=== PATIENT | female | born 1945 | race Caucasian/White ===

== ENCOUNTER → 2018-06-21 12:53 | Outpatient (CLI) | payer OTHER, SELFPAY | PROVIDERS: PCP Student in an Organized Health Care Education/Training Program; Visit Provider Student in an Organized Health Care Education/Training Program | DX: Z78.0 Asymptomatic menopausal state (principal); R29.890 Loss of height; Z90.722 Acquired absence of ovaries, bilateral; F17.200 Nicotine dependence, unspecified, uncomplicated | CPT/HCPCS: 77080 ==

== ENCOUNTER → 2020-10-31 08:05 | Outpatient (CLI) | payer OTHER, SELFPAY ==
--- NOTE | 2020-10-31 | DI.RAD.S_ITS ---
PROCEDURE: XR HIP W PEL IF DONE LT 2V INDICATIONS: HIP PAIN TECHNIQUE: AP pelvis with lateral view(s) of the left hip(s). COMPARISON: None. FINDINGS: Bones: No fractures or dislocations. Pelvic ring appears intact. No suspicious bony lesions. Mild hip and sacroiliac joint degeneration bilaterally. Soft tissues: The visualized bowel gas pattern is normal. No suspicious soft tissue calcifications. 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 Dictated by: Irene Booth M.D. on 10/31/2020 at 10:02 Approved by: Irene Booth M.D. on 10/31/2020 at 10:03
--- NOTE | 2020-10-31 | DI.RAD.S_ITS ---
PROCEDURE: XR KNEE LT 3V INDICATIONS: KNEE PAIN TECHNIQUE: Lateral and sunrise views of the left knee and weight-bearing view of both knees were acquired. COMPARISON: None. FINDINGS: Bones: No fractures or dislocations. No suspicious bony lesions. Severe degenerative joint disease of the left knee, most pronounced in the medial femorotibial compartment. There is also severe right knee joint degeneration. Soft tissues: Small joint effusion. No suspicious soft tissue calcifications. IMPRESSION: 1. Severe left knee osteoarthritis. 2. Severe right knee osteoarthritis. Dictated by: Irene Booth M.D. on 10/31/2020 at 9:59 Approved by: Irene Booth M.D. on 10/31/2020 at 10:01
--- NOTE | 2020-10-31 | DI.RAD.S_ITS ---
PROCEDURE: XR LUMBAR SPINE 2-3V INDICATIONS: LOW BACK PAIN TECHNIQUE: 3 views of the lumbar spine were acquired. COMPARISON: None. FINDINGS: Bones: 5 [id number] vertebrae are present. There is normal bony alignment. No vertebral body compression fractures. No suspicious bony lesions. There is moderate degenerative disc disease throughout the lower thoracic spine and lumbar spine. Severe facet arthropathy at L3-L4, L4-L5 and L5-S1. Soft tissues: Overlying bowel gas pattern is normal. Vascular calcifications. IMPRESSION: Degenerative disc and facet disease in lumbar spine. Dictated by: Irene Booth M.D. on 10/31/2020 at 10:03 Approved by: Irene Booth M.D. on 10/31/2020 at 10:05
== END ==
PROVIDERS: PCP Student in an Organized Health Care Education/Training Program; Referring Provider Student in an Organized Health Care Education/Training Program; Visit Provider Student in an Organized Health Care Education/Training Program
DX: M25.552 Pain in left hip (principal); M25.551 Pain in right hip; M16.0 Bilateral primary osteoarthritis of hip; M25.561 Pain in right knee; M25.562 Pain in left knee; M17.0 Bilateral primary osteoarthritis of knee; M54.42 Lumbago with sciatica, left side; M46.1 Sacroiliitis, not elsewhere classified; G89.29 Other chronic pain
CPT/HCPCS: 72100; 73502; 73562

== ENCOUNTER → 2024-09-13 11:55 | Outpatient (CLI) | payer OTHER, SELFPAY ==
[2024-09-13 12:40] LABS: Add Manual Diff / Slide Review NO; Hematocrit 42.5 % (36-46); Hemoglobin 14.3 g/dL (12.0-16.0); Lymphocytes Absolute Auto 2500 /uL (1100-4500); Mean Corpuscular HGB Conc 33.6 % (30-36); Mean Corpuscular Hemoglobin 28.1 PG (26-34); Mean Corpuscular Volume 83.7 fL (80-100); Platelet Count 194 X10^3/uL (150-400)
[2024-09-13 13:02] LABS: Alanine Aminotransferase 15 IU/L (<35); Albumin 4.2 g/dL (3.5-5.0); Albumin Globulin Ratio 1.4 (1.0-2.8); Alkaline Phosphatase 120 U/L (38-126); Blood Urea Nitrogen 15 mg/dL (7-17); Calcium 9.4 mg/dL (8.4-10.2); Carbon Dioxide 30 mmol/L (22-32); Chloride 102 mmol/L (98-107); Estimated Glomerular Filt Rate > 60 mL/min (>60); Globulin 3.0 g/dL (1.7-4.1); Glucose 93 mg/dL (70-99); HEMOLYSIS < 15 (0-50); Potassium 4.1 mmol/L (3.4-5.1); Sodium 136 mmol/L (137-145); Total Protein 7.2 g/dL (6.3-8.2)
[2024-09-13 13:19] LABS: Free T4, Direct Thyroxine 1.74 ng/dL (0.78-2.19)
[2024-09-13 13:33] LABS: Thyroid Stimulating Hormone 1.93 uIU/mL (0.47-4.68)
[2024-09-13 14:09] LABS: Folate 4.3 ng/mL (2.76-20.0); Vitamin B12 648 pg/mL (239-931)
== END ==
PROVIDERS: PCP Nurse Practitioner Family; Referring Provider Nurse Practitioner Family; Visit Provider Nurse Practitioner Family
DX: R00.2 Palpitations (principal); I48.91 Unspecified atrial fibrillation; Z98.890 Other specified postprocedural states
CPT/HCPCS: 36415; 80053; 82607; 82746; 84439; 84443; 85025

== ENCOUNTER → 2024-09-21 09:44 | Outpatient (CLI) | payer MEDICARE, SELFPAY | PROVIDERS: PCP Nurse Practitioner Family; Referring Provider Nurse Practitioner Family; Visit Provider Nurse Practitioner Family | DX: R00.2 Palpitations (principal); Z86.79 Personal history of other diseases of the circulatory system | CPT/HCPCS: 93242 ==

== ENCOUNTER → 2024-10-23 11:04 | Outpatient (CLI) | payer MEDICARE, SELFPAY ==
--- NOTE | 2024-10-23 11:06 | DI.RAD.S_ITS ---
PROCEDURE: XR LUMBAR SPINE MIN 4V INDICATIONS: BACK PAIN TECHNIQUE: 5 views of the lumbar spine acquired, including flexion and extension views. COMPARISON: [facility], , XR LUMBAR SPINE 2-3V, 10/31/2020, 8:23. FINDINGS: Bones: 5 nonrib-bearing vertebrae are present. Grade 1 anterolisthesis of L5 on S1 and L4 on L5, progressed from prior. No vertebral body compression fractures. No suspicious bony lesions. Mild to moderate, multilevel degenerative disc disease and lower lumbar facet arthrosis. Soft tissues: Overlying bowel gas pattern is normal. No suspicious soft tissue calcifications. Flexion/extension: There is normal range of motion, with preserved normal alignment. IMPRESSION: Progressed degenerative changes. Dictated by: Suhail Pena M.D. on 10/23/2024 at 12:30 Approved by: Suhail Pena M.D. on 10/23/2024 at 12:31
== END ==
PROVIDERS: PCP Nurse Practitioner Family; Referring Provider Nurse Practitioner Family; Visit Provider Physical Medicine & Rehabilitation
DX: M51.369 Other intervertebral disc degeneration, lumbar region without mention of lumbar back pain or lower extremity pain (principal); M47.816 Spondylosis without myelopathy or radiculopathy, lumbar region; M43.16 Spondylolisthesis, lumbar region; M43.17 Spondylolisthesis, lumbosacral region; M54.9 Dorsalgia, unspecified
CPT/HCPCS: 72110

== ENCOUNTER → 2024-12-05 13:38 | Outpatient (CLI) | payer MEDICARE, SELFPAY ==
--- NOTE | 2024-12-05 13:40 | DI.ECHO.S_ITS ---
[facility] : : [address] : : [place] : : [id number] : : Phone: [phone] Echocardiogram Report + + :Name: MARK HERNÁNDEZ I Study Date: 12/05/2024 Height: 64 in : :[facility] ReadingLocation: Weight: 195 lb : : Gender: Female BSA: 1.9 m2 : :: 1945 Age: 79 yrs BP: 146/97 mmHg: :Reason For Study: TACHYCARDIA : :Ordering Physician: NEDRA COE Performed By: Roslyn Kumar : :Referring: NEDRA COE : + + Interpretation Summary - The left ventricular contractility is normal. Estimated ejection fraction is greater than 55% with no segmental wall motion abnormalities. No LVH. Indeterminate diastolic function. - The right ventricular contractility is normal. - All cardiac chambers are of normal size. - Mild mitral regurgitation. - Mild tricuspid regurgitation with estimated pulmonary systolic artery pressures of 41 mmHg. - No obvious intracardiac shunts. - No obvious intracardiac masses nor thrombi. - No hemodynamically significant pericardial effusion. - Normal right-sided filling pressures. Conclusion: Normal biventricular systolic function with mild mitral and tricuspid regurgitation. Procedure: A two-dimensional transthoracic echocardiogram with color flow and Doppler was performed. The study quality was technically adequate. There is no prior echocardiogram noted for this patient. The patient had occasional PVCs during the exam. The patient was in sinus rhythm with heart rates between 61-81 bpm during the exam. Left Ventricle: The left ventricle is normal in size and wall thickness. The ejection fraction is estimated to be 55-60%. Diastolic function is indeterminate. Right Ventricle: The right ventricle is normal size. The right ventricular systolic function is normal. Atria: The left atrial size is normal. Right atrial size is normal. There is no Doppler evidence for an interatrial shunt. Mitral Valve: There is mild mitral annular calcification. The mitral valve leaflets appear mildly thickened. There is mild mitral regurgitation. Aortic Valve: The aortic valve is trileaflet. The aortic valve opens well. There is no aortic valve stenosis. There is trace aortic regurgitation. Tricuspid Valve: The tricuspid valve leaflets are thin and pliable. There is mild tricuspid regurgitation. The right ventricular systolic pressure is estimated to be at least 41 mmHg based on an estimated right atrial pressure of 8 mm Hg. Pulmonic Valve: The pulmonic valve is not well visualized. There is trace pulmonic regurgitation. Great Vessels: The aortic root is normal size. The dimensions of the ascending aorta are normal. The IVC is dilated (diameter is greater than 2.1 cm) yet it collapses greater than 50% with a sniff. This suggests a right atrial pressure of 8 mm Hg. Pericardium/ Pleura There is no pericardial effusion. There is no pleural effusion. MMode/2D Measurements & Calculations LVIDd: 4.8 cm LVOT diam: 2.1 cm LVIDs: 3.5 cm Ao root diam: 2.8 cm FS: 27.5 % asc Aorta Diam: 3.2 cm IVSd: 0.81 cm Ao Arch Diam (Prox Trans): 2.4 cm LVPWd: 0.93 cm LV mccray. diameter/BSA (cm/m^2): 2.5 LV sys. diameter/BSA (cm/m^2): 1.8 LA A2 area: 19.7 cm2 RA long axis: 5.3 cm LA A4 area: 20.2 cm2 RA area: 17.3 cm2 LA length (vol): 5.3 cm RA vol: 48.1 ml LA vol: 63.9 ml RA : 24.9 ml/m2 LA vol index: 33.0 ml/m2 IVC diam: 2.1 cm RVD1 (basal): 4.0 cm RVD2 (mid): 3.3 cm TAPSE: 2.1 cm Doppler Measurements & Calculations Ao V2 max: 118.6 cm/sec LVOT Max Edvin: 79.9 cm/sec Ao V2 mean: 86.2 cm/sec LV V1 max P.6 mmHg Ao max P.6 mmHg LV V1 VTI: 19.3 cm Ao mean P.2 mmHg LAWRENCE(I,D): 2.4 cm2 Ao V2 VTI: 28.5 cm LAWRENCE(V,D): 2.4 cm2 sev ratio: 0.68 LAWRENCE indexed to BSA (cm^2/m^2): 1.2 MV E max edvin: 63.5 cm/sec TR max edvin: 286.8 cm/sec MV A max edvin: 72.2 cm/sec TR max P.9 mmHg MV E/A: 0.88 PA V2 max: 83.9 cm/sec Med Peak E' Edvin: 6.9 cm/sec PA V2 mean: 57.1 cm/sec E/E' med: 9.2 PA mean P.5 mmHg Lat Peak E' Edvin: 9.7 cm/sec PA pr(Accel): 26.8 mmHg E/E' lat: 6.6 E/e' average: 7.9 MV dec time: 0.19 sec SV(LVOT): 68.8 ml Reading Physician:BUBBA
== END ==
LOC: ECHO 13:39
PROVIDERS: Referring Provider Internal Medicine; Visit Provider Internal Medicine
DX: I08.1 Rheumatic disorders of both mitral and tricuspid valves (principal); I47.10 Supraventricular tachycardia, unspecified
CPT/HCPCS: 93306